=== PATIENT | male | born 1945 ===

== ENCOUNTER → 2020-10-09 | Outpatient (CLI) | payer OTHER ==
[~2020-10-09] MED LIST: LIPITOR; NORVASC; PLAVIX75 MG; TOPROL
== END | disposition home or self-care (01) ==
LOC: SONOGRAMA 14:30 → MAMO-SONO 15:00
DX: E04.2 Nontoxic multinodular goiter (principal)

== ENCOUNTER 2024-02-12 11:11 | Outpatient (CLI) | payer OTHER | END 2024-02-12 11:14 | disposition home or self-care (01) | LOC: SONOGRAMA 11:11 | PROVIDERS: ATTEND Pathology Anatomic Pathology & Clinical Pathology | DX: D34 Benign neoplasm of thyroid gland (principal); E07.89 Other specified disorders of thyroid; E04.2 Nontoxic multinodular goiter ==